=== PATIENT | female | born 1965 | race Caucasian/White ===

== ENCOUNTER 2021-05-31 18:32 | Emergency (ER) | payer OTHER ==
[~2021-05-31] VITALS: Ht 157.5 cm; Wt 66.7 kg
--- NOTE | 2021-05-31 18:37 | NUR ---
MANISH ALS TO ER BED 3
[2021-05-31 18:46] VITALS: BP 171/94
--- NOTE | 2021-05-31 19:20 | NUR ---
ASSUMED PATIENT CARE, HERE FOR NECK PAIN. AWAITING FOR CT. NOTED C-COLLAR ON AND G22 IV ON LEFT AC.
--- NOTE | 2021-05-31 19:49 | NUR ---
PT RETURN FROM RADIOLOGY
[2021-05-31 20:55] VITALS: BP 142/75
--- NOTE | 2021-05-31 20:55 | NUR ---
Patient cleared for dc with ED MD, instructions reinforced to patient and verbalizes understanding.
--- NOTE | 2021-05-31 20:57 | NUR ---
DVS stable on dc, IV line removed, c-collar removed by .
== END 2021-05-31 20:57 | disposition home or self-care (01) ==
LOC: MED 18:32
DX: S09.90XA Unspecified injury of head, initial encounter (principal); M54.2 Cervicalgia; E07.9 Disorder of thyroid, unspecified; Z90.49 Acquired absence of other specified parts of digestive tract; W19.XXXA Unspecified fall, initial encounter; Y93.89 Activity, other specified; Y92.89 Other specified places as the place of occurrence of the external cause; Y99.8 Other external cause status
CPT/HCPCS: 70450; 70486; 72125; 73562; 99285; Q0092